=== PATIENT | female | born 2000 | race Caucasian/White ===

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

== ENCOUNTER 2020-11-22 12:43 | Emergency (ER) | payer OTHER ==
[~2020-11-22] VITALS: Ht 160 cm; Wt 102.3 kg
[~2020-11-22 12:43] MED LIST changes: +FLEXERIL 1010 MG/TAB PO; +LIDODERM 5% PATC1 EA TP; +PROAIR HFA0.09 MG/AC IH; +TAMIFLU 75MG75 MG PO
[2020-11-22 12:57] VITALS: TEMP 98.7
[2020-11-22] MEDS ORDERED: PROAIR HFA0.09 MG/AC IH (13:25)
[2020-11-22 14:00] VITALS: BP 125/77; PULSE 110
== END 2020-11-22 14:02 | disposition home or self-care (01) ==
LOC: COL.ER 12:43
DX: J45.901 Unspecified asthma with (acute) exacerbation (principal); J06.9 Acute upper respiratory infection, unspecified; F41.9 Anxiety disorder, unspecified; F31.9 Bipolar disorder, unspecified; F17.290 Nicotine dependence, other tobacco product, uncomplicated; Z79.51 Long term (current) use of inhaled steroids; Z79.899 Other long term (current) drug therapy

== ENCOUNTER 2021-09-13 15:01 | Emergency (ER) | payer SELFPAY ==
[~2021-09-13] VITALS: Ht 160 cm; Wt 106.8 kg
[2021-09-13 15:17] VITALS: TEMP 97.6
[2021-09-13 15:53] LABS: BASO % 0.3 % (0.0-2.0); EOS # 0.1 K/mm3 (0.0-0.7); EOS % 0.7 % (0.0-4.0); GRAN # 4.7 K/mm3 (1.4-6.5); HEMATOCRIT 43.6 % (37.0-47.0); HEMOGLOBIN 14.5 g/dl (12.5-16.0); LYMPH # 2.4 K/mm3 (1.2-3.4); LYMPH % 32.1 % (20.0-51.0); MEAN CELL VOLUME 79 fl (80.0-100.0); MEAN CORPUSCULAR HEMOGLOBIN 26 pg (27-31); MEAN CORPUSCULAR HGB CONC 33 g/dl (33.0-37.0); MEAN PLATELET VOLUME 9.3 fl (7.4-10.4); MONO # 0.3 K/mm3 (0.1-0.6); MONO % 4.4 % (1.7-9.3); PLATELET COUNT 332 K/mm3 (130-400); RED BLOOD COUNT 5.53 M/mm3 (4.10-5.30)
[2021-09-13] MEDS ORDERED: ADDERALL XR25 MG PO (15:57)
[2021-09-13 16:12] LABS: ALBUMIN 3.9 gm/dL (3.5-5.0); BILIRUBIN,TOTAL 0.4 mg/dL (0.2-1.2); CALCIUM 9.4 mg/dL (8.4-10.2); CREATININE, serum 0.67 mg/dL (0.57-1.11); TOTAL PROTEIN 7.6 gm/dL (6.2-8.1)
[2021-09-13 16:43] LABS: COLLECTION METHOD CLEAN CATCH
[2021-09-13 16:48] LABS: PH 6 (5-8); SQUAMOUS EPITHELIAL 0-2 /hpf (0-10); URINE APPEARANCE Clear (CLEAR/HAZY); URINE BACTERIA Rare /hpf (NONE SEEN); URINE BILIRUBIN Negative (NEGATIVE); URINE BLOOD Negative (NEGATIVE); URINE COLOR Straw (YELLOW); URINE GLUCOSE Negative (NEGATIVE); URINE KETONE Trace (NEGATIVE); URINE LEUKOCYTE ESTERASE Negative (NEGATIVE); URINE NITRATE Negative (NEGATIVE); URINE PROTEIN(semi-quant) Negative (NEGATIVE); URINE RBC 0-2 /hpf (0-2); URINE UROBILINOGEN Negative (NEGATIVE)
[2021-09-13] MEDS ORDERED: DRAMAMINE LESS25 MG PO (17:33)
[2021-09-13] MEDS ORDERED: ZOFRAN ODT4 MG PO (17:34)
[2021-09-13 17:51] VITALS: BP 128/90; PULSE 97
== END 2021-09-13 17:51 | disposition home or self-care (01) ==
LOC: COL.ER 15:01
PROVIDERS: Physician Assistant
DX: H61.21 Impacted cerumen, right ear (principal); R11.2 Nausea with vomiting, unspecified
CPT/HCPCS: J2405; J7030

== ENCOUNTER 2021-11-08 06:48 | Emergency (ER) | payer SELFPAY ==
[~2021-11-08] VITALS: Ht 160 cm; Wt 104.5 kg
[~2021-11-08 06:48] MED LIST changes: +ADDERALL XR25 MG PO; +DRAMAMINE LESS25 MG PO
[2021-11-08 07:03] VITALS: BP 105/73; TEMP 98.2
[2021-11-08 07:17] LABS: COLLECTION METHOD CLEAN CATCH
[2021-11-08 07:36] LABS: PH 6 (5-8); SQUAMOUS EPITHELIAL 0-2 /hpf (0-10); URINE APPEARANCE Clear (CLEAR/HAZY); URINE BACTERIA Rare /hpf (NONE SEEN); URINE BILIRUBIN Negative (NEGATIVE); URINE BLOOD 1+ (NEGATIVE); URINE COLOR Amber (YELLOW); URINE GLUCOSE Negative (NEGATIVE); URINE KETONE Negative (NEGATIVE); URINE LEUKOCYTE ESTERASE 2+ (NEGATIVE); URINE NITRATE Positive (NEGATIVE); URINE PROTEIN(semi-quant) Negative (NEGATIVE); URINE UROBILINOGEN >=4.0 (NEGATIVE)
[2021-11-08] MEDS ORDERED: AMOXICILLIN 8751 TAB PO (07:37)
[2021-11-08 07:50] VITALS: PULSE 60
== END 2021-11-08 07:50 | disposition home or self-care (01) ==
LOC: COL.ER 06:48
PROVIDERS: Family Medicine
DX: L03.113 Cellulitis of right upper limb (principal); N39.0 Urinary tract infection, site not specified; W55.01XA Bitten by cat, initial encounter

== ENCOUNTER 2024-01-18 18:43 | Emergency (ER) | payer SELFPAY ==
[~2024-01-18] VITALS: Ht 160 cm; Wt 109.1 kg
[~2024-01-18 18:43] MED LIST changes: +AMOXICILLIN 8751 TAB PO; +TRIAMCINOLONE A15 G1 TP
[2024-01-18 18:48] VITALS: TEMP 99.2
[2024-01-18 19:18] LABS: COLLECTION METHOD CLEAN CATCH
[2024-01-18 19:24] LABS: URINE APPEARANCE CLOUDY (CLEAR/HAZY); URINE BLOOD TRACE (NEGATIVE); URINE COLOR YELLOW (YELLOW); URINE GLUCOSE NEGATIVE (NEGATIVE); URINE KETONE NEGATIVE (NEGATIVE); URINE NITRATE NEGATIVE (NEGATIVE); URINE PROTEIN(semi-quant) NEGATIVE (NEGATIVE); URINE UROBILINOGEN 0.2 E.U/dL (0.2-1.0)
[2024-01-18] MEDS ORDERED: Ketorolac 30 MG/ML VIAL IM ONE (19:30)
[2024-01-18] MEDS ORDERED: NAPROSYN500 MG PO (19:38)
[2024-01-18] MEDS ORDERED: Home HYDROcodone/Acetaminophen 5/325 MG #4 TABS/PACK PO ONE (19:45)
[2024-01-18 20:40] VITALS: BP 118/78; PULSE 72
== END 2024-01-18 20:42 | disposition home or self-care (01) ==
LOC: COL.ER 18:43
PROVIDERS: Physician Assistant
DX: M54.50 Low back pain, unspecified (principal)
CPT/HCPCS: J1885

== ENCOUNTER 2024-01-22 12:05 | Emergency (ER) | payer SELFPAY ==
[~2024-01-22] VITALS: Ht 160 cm; Wt 109.1 kg
[~2024-01-22 12:05] MED LIST changes: +NAPROSYN500 MG PO
[2024-01-22] MEDS ORDERED: Ondansetron 4 MG/2 ML VIAL IV ONE (13:15)
[2024-01-22] MEDS ORDERED: NS 1,000 ML IV ONE (13:15)
[2024-01-22 13:45] LABS: BASO % 0.3 % (0.0-2.0); EOS # 0.2 K/mm3 (0.0-0.7); EOS % 2.2 % (0.0-4.0); GRAN # 4.4 K/mm3 (1.4-6.5); GRAN % 63.3 % (42.2-75.2); HEMATOCRIT 45.4 % (37.0-47.0); HEMOGLOBIN 15.3 g/dl (12.5-16.0); LYMPH # 2.1 K/mm3 (1.2-3.4); MEAN CELL VOLUME 84 fl (80.0-100.0); MEAN CORPUSCULAR HEMOGLOBIN 28 pg (27-31); MEAN CORPUSCULAR HGB CONC 34 g/dl (33.0-37.0); MEAN PLATELET VOLUME 9.1 fl (7.4-10.4); MONO # 0.3 K/mm3 (0.1-0.6); MONO % 3.9 % (1.7-9.3); PLATELET COUNT 282 K/mm3 (130-400); RED BLOOD COUNT 5.41 M/mm3 (4.10-5.30); REDCELL DISTRIBUTION WIDTH-CV 12.4 % (11.5-14.5)
[2024-01-22 14:03] LABS: ALBUMIN 3.8 g/dL (3.5-5.0); BILIRUBIN,TOTAL 0.3 mg/dL (0.2-1.2); C-REACTIVE PROTEIN 0.3 mg/dL (0.00-0.50); CALCIUM 9.9 mg/dL (8.4-10.2); CREATININE, serum 0.75 mg/dL (0.57-1.11); POTASSIUM 3.9 mEq/L (3.5-4.5); TOTAL PROTEIN 7.5 g/dl (6.2-8.1)
[2024-01-22 16:57] LABS: COLLECTION METHOD CLEAN CATCH
[2024-01-22 17:49] LABS: URINE APPEARANCE CLEAR (CLEAR/HAZY); URINE BLOOD TRACE-INTACT (NEGATIVE); URINE COLOR YELLOW (YELLOW); URINE GLUCOSE NEGATIVE (NEGATIVE); URINE KETONE NEGATIVE (NEGATIVE); URINE NITRATE NEGATIVE (NEGATIVE); URINE PROTEIN(semi-quant) NEGATIVE (NEGATIVE); URINE UROBILINOGEN 0.2 E.U/dL (0.2-1.0)
[2024-01-22] MEDS ORDERED: CEFTIN500 MG PO (17:57)
[2024-01-22] MEDS ORDERED: cefTRIAXone 1 G in Water For Injection,Sterile 10 ML IV ONE (18:00)
[2024-01-22 18:48] VITALS: BP 117/90; PULSE 88; TEMP 98.4
== END 2024-01-22 18:48 | disposition home or self-care (01) ==
LOC: COL.ER 12:05
PROVIDERS: Nurse Practitioner
DX: N39.0 Urinary tract infection, site not specified (principal)
CPT/HCPCS: J0696; J2405; J7030